=== PATIENT | female | born 1990 | race Caucasian/White ===

== ENCOUNTER 2018-10-30 14:47 | Emergency (ER) | payer SELFPAY ==
[2016-04-27 15:45] VITALS: BP 138/89
[~2018-10-30 14:47] MED LIST: LORA0.5T96 PO
== END 2018-10-30 15:20 | disposition left against medical advice (07) ==
LOC: ER 14:47
DX: R10.9 Unspecified abdominal pain (principal); R11.10 Vomiting, unspecified; Z53.21 Procedure and treatment not carried out due to patient leaving prior to being seen by health care provider

== ENCOUNTER 2020-09-15 08:27 | Emergency (ER) | payer SELFPAY ==
[~2020-09-15] VITALS: Ht 165.1 cm; Wt 61.7 kg
[2020-09-15 08:33] VITALS: BP 140/84
--- NOTE | 2020-09-15 08:52 | PHYS DOC ---
Past Medical History Past Medical History: Anxiety, Depression Past Surgical History: No Surgical History Smoking Status: Current Some Day Smoker Alcohol Use: Occasionally Drug Use: None General Adult EDM: Chief Complaint: ANXIETY/PANIC ATTACK HPI: HPI: Patient is a 30-year-old female with history of anxiety, presented to ER for evaluation of anxiety and panic attack. Patient has dealt with this problem since she was 16-year-old. Patient has been in and out of rehab. Patient wants Ativan for her anxiety. She has been on Ativan, her last dose was yesterday. Patient denies suicidal ideation denies homicidal ideation. Patient denies any chest pain, no abdominal pain, no nausea vomiting. Review of Systems: Review of Systems: Constitutional: Denies fever or chills. [] Eyes: Denies change in visual acuity. [] HENT: Denies nasal congestion or sore throat. [] Respiratory: Denies cough or shortness of breath. [] Cardiovascular: Denies chest pain or edema. [] GI: Denies abdominal pain, nausea, vomiting, bloody stools or diarrhea. [] : Denies dysuria. [] Musculoskeletal: Denies back pain or joint pain. [] Integument: Denies rash. [] Neurologic: Denies headache, focal weakness or sensory changes. [] Endocrine: Denies polyuria or polydipsia. [] Lymphatic: Denies swollen glands. [] Psychiatric: Denies depression , positive for anxiety, denies suicidal ideation denies homicidal nation. Heart Score: C/O Chest Pain: N/A Risk Factors: Risk Factors: DM, Current or recent (<one month) smoker, HTN, HLP, family history of CAD, obesity. Risk Scores: Score 0 - 3: 2.5% MACE over next 6 weeks - Discharge Home Score 4 - 6: 20.3% MACE over next 6 weeks - Admit for Clinical Observation Score 7 - 10: 72.7% MACE over next 6 weeks - Early Invasive Strategies Allergies: Allergies: Allergies Coded Allergies Type Severity Reaction Last Updated Verified Penicillins Allergy Intermediate rash 04/27/16 Yes Physical Exam: PE: Constitutional: Well developed, well nourished, no acute distress, non-toxic appearance. [] HENT: Normocephalic, atraumatic, bilateral external ears normal, oropharynx moist, no oral exudates, nose normal. [] Eyes: PERRLA, EOMI, conjunctiva normal, no discharge. [] Neck: Normal range of motion, no tenderness, supple, no stridor. [] Cardiovascular:Heart rate regular rhythm, no murmur [] Lungs & Thorax: Bilateral breath sounds clear to auscultation [] Abdomen: Bowel sounds normal, soft, no tenderness, no masses, no pulsatile masses. [] Skin: Warm, dry, no erythema, no rash. [] Back: No tenderness, no CVA tenderness. [] Extremities: No tenderness, no cyanosis, no clubbing, ROM intact, no edema. [] Neurologic: Alert and oriented X 3, normal motor function, normal sensory function, no focal deficits noted. [] Psychologic: Affect normal, judgement normal, mood normal. [] Current Patient Data: Vital Signs: Vital Signs Date Time Temp Pulse Resp B/P (MAP) Pulse Ox O2 Delivery O2 Flow Rate FiO2 09/15/20 08:33 98.1 113 16 140/84 (102) 100 Room Air 98.1 EKG: EKG: [] Radiology/Procedures: Radiology/Procedures: [] Course & Med Decision Making: Course & Med Decision Making Pertinent Labs and Imaging studies reviewed. (See chart for details) Patient is a 30-year-old female with history of anxiety, presented to ER for evaluation of anxiety and panic attack. Patient has dealt with this problem since she was 16-year-old. Patient has been in and out of rehab. Patient wants Ativan for her anxiety. She has been on Ativan, her last dose was yesterday. Patient initially wanted help with drug rehab but then said if we are not giving her ativan or klonopin now she just leave. This physician explained to her that we need to medically clear her first, then we will get one of our Psychiatric multifocal lens inspector to see her then we will go from there. Patient decided to sign out AMA. Patient denies suicidal ideation, denies homicidal ideation. Dragon Disclaimer: Dragon Disclaimer: This electronic medical record was generated, in whole or in part, using a voice recognition dictation system. Departure Departure Impression: Primary Impression: Anxiety Disposition: AMA/ELOPED/LWBS Condition: STABLE Referrals: NO PCP (PCP) Patient Instructions: Anxiety and Panic Attacks, Discharge Against Medical Advice LILIANA HUERTAS DO Sep 15, 2020 08:52
== END 2020-09-15 08:49 | disposition left against medical advice (07) ==
LOC: ER 08:27
DX: F41.9 Anxiety disorder, unspecified (principal); F32.9 Major depressive disorder, single episode, unspecified; Z87.891 Personal history of nicotine dependence; Z88.0 Allergy status to penicillin
CPT/HCPCS: 99281

== ENCOUNTER 2020-09-15 12:36 | Emergency (ER) | payer SELFPAY ==
[2020-09-15 08:33] VITALS: BP 140/84
== END 2020-09-15 13:00 | disposition left against medical advice (07) ==
LOC: ER 12:36
DX: R51.9 Headache, unspecified (principal); Z53.21 Procedure and treatment not carried out due to patient leaving prior to being seen by health care provider

== ENCOUNTER 2021-05-04 23:32 | Emergency (ER) | payer MEDICAID ==
[~2021-05-04] VITALS: Ht 165.1 cm; Wt 59.0 kg
[2021-05-04 23:35] VITALS: BP 144/93
[2021-05-05] MEDS ORDERED: TRAZ-118 PO (00:02)
[2021-05-05] MEDS ORDERED: OLAN10TA69 PO (00:02)
--- NOTE | 2021-05-05 00:03 | PHYS DOC ---
Past Medical History Past Medical History: Anxiety, Bipolar, Depression Additional Past Medical Histor: Borderline personality disorder General Adult EDM: Chief Complaint: MEDICATION REFILL HPI: HPI: Patient is a 31 year old female with history of anxiety, depression, bipolar disorder, borderline personality disorder who presents for medication refill. Patient states that she is currently unemployed and has not had money to see her psychiatrist or refill her prescriptions. She states she has been out of her medications for about a month. She reports she takes olanzapine 10 mg and trazodone 20 mg daily. She reports feeling anxious. Patient denies SI and HI. Patient has no other complaints at this time. Review of Systems: Review of Systems: ROS negative except as mentioned in HPI. Heart Score: C/O Chest Pain: No Allergies: Allergies: Allergies Coded Allergies Type Severity Reaction Last Updated Verified Penicillins Allergy Intermediate 05/04/21 Yes Physical Exam: PE: Constitutional: Well developed, well nourished, well groomed non-toxic appearance. Cardiovascular: Heart rate regular rhythm, no murmur. Lungs & Thorax: Bilateral breath sounds clear to auscultation. Neurologic: Alert and oriented x3, normal motor function, normal sensory function, no focal deficits noted. Psychologic: Affect anxious and fidgeting with O2 probe, fair judgment, mood "anxious." Current Patient Data: Vital Signs: Vital Signs Date Time Temp Pulse Resp B/P (MAP) Pulse Ox O2 Delivery O2 Flow Rate FiO2 05/04/21 23:35 98.0 100 20 144/93 (110) 99 Room Air 98.0 Repeat blood pressure was 150/87. Course & Med Decision Making: Course & Med Decision Making Pertinent Labs and Imaging studies reviewed. (See chart for details) Patient's blood pressure was elevated on arrival. After she has been in the department, it has come down slightly. The persistent elevated systolic blood pressure is likely secondary to anxiety. Patient has a longstanding history of anxiety, depression and other psychiatric diagnoses. Patient appears anxious on exam, however does not seem to be a danger to herself or others. I will give her 1 dose of the olanzapine and trazodone here in the department, as many pharmacies are closed right now. She does have financial concerns regarding filling the prescription, but good Rx has prices she can manage at [facility]. Patient states that her grandmother will be able to help her pay for the prescriptions. Patient understands and is agreeable to discharge plan. Dragon Disclaimer: Dragon Disclaimer: This electronic medical record was generated, in whole or in part, using a voice recognition dictation system. Departure Departure Impression: Primary Impression: Medication refill Additional Impressions: Anxiety Depression Qualified Codes: F32.A - Depression, unspecified Hx of bipolar disorder Hx of borderline personality disorder Disposition: HOME / SELF CARE / HOMELESS Condition: STABLE Referrals: NO PCP (PCP) Patient Instructions: Medication Refill, Emergency Department Additional Instructions: Prescriptions were sent to [facility] pharmacy, as discussed. Please return to the emergency department if you develop any new symptoms. Scripts Trazodone Hcl (TRAZODONE HCL) 50 Mg Tablet 0.5 TAB PO DAILY for 30 Days, #15 TAB Prov: JESUS MOREJON 05/05/21 Olanzapine (OLANZAPINE) 10 Mg Tablet 10 MG PO DAILY for 30 Days, #30 TAB Prov: JESUS MOREJON 05/05/21 JESUS MOREJON May 05, 2021 00:03
[2021-05-05] MEDS ORDERED: OLANZapine 5 MG TABLET PO ONE (00:30)
[2021-05-05] MEDS ORDERED: traZODone 50 MG TABLET. PO ONE (00:30)
== END 2021-05-05 00:35 | disposition home or self-care (01) ==
LOC: ER 23:32 → MERGE 23:32 → ER 05-05 00:35
DX: F41.9 Anxiety disorder, unspecified (principal); F31.9 Bipolar disorder, unspecified; Z76.0 Encounter for issue of repeat prescription; Z88.0 Allergy status to penicillin
CPT/HCPCS: 99283